=== PATIENT | male | born 1970 | race African-American/Black ===

== ENCOUNTER 2024-04-12 21:40 | Inpatient (IN) | payer OTHER ==
[~2024-04-12] VITALS: Ht 180.3 cm; Wt 99.8 kg
[2024-04-12] MEDS ORDERED: AMIODARONE HCL 150 MG/3 ML VIAL IV ONE ×2 (21:53→22:18)
[2024-04-12] MEDS ORDERED: blood thinner (22:09)
[2024-04-12] MEDS ORDERED: metoprolol PO (22:09)
[2024-04-12] MEDS ORDERED: ASPIRIN 81 MG TAB.CHEW ONE (22:18)
[2024-04-12] MEDS ORDERED: NITROGLYCERIN OINT 1 GM PACKET TP ONE (22:18)
[2024-04-12 22:20] LABS: BASOPHILS # (AUTO) 0.1 K/UL (0.0-0.2); BASOPHILS % (AUTO) 0.5 % (0.0-2.0); EOSINOPHILS # (AUTO) 0.1 K/uL (0.0-0.7); EOSINOPHILS % (AUTO) 0.7 % (0.0-7.0); HEMATOCRIT 44.9 % (36.7-47.1); HEMOGLOBIN 14.6 g/dL (12.5-16.3); LYMPHOCYTES # (AUTO) 2.9 K/uL (0.8-4.8); LYMPHOCYTES % (AUTO) 25.6 % (20.5-51.5); MEAN CORPUSCULAR HEMOGLOBIN 27.2 uug (23.8-33.4); MEAN CORPUSCULAR HGB CONC 33 g/dL (32.5-36.3); MEAN CORPUSCULAR VOLUME 83.6 fL (73.0-96.2); MONOCYTES # (AUTO) 0.7 K/uL (0.1-1.30); MONOCYTES % (AUTO) 6.1 % (0.0-11.0); NEUTROPHILS # (AUTO) 7.7 K/uL (1.8-8.9); NEUTROPHILS % (AUTO) 67.1 % (38.5-71.5); PLATELET COUNT (AUTO) 204 K/uL (152-348); RED BLOOD CELL COUNT(AUTO) 5.36 MIL/uL (4.06-5.63); RED CELL DISTRIBUTION WIDTH 15.8 % (12.1-16.2); WHITE BLOOD COUNT (AUTO) 11.4 K/uL (3.6-10.2)
[2024-04-12] MEDS: NITROGLYCERIN OINT 1 GM PACKET TP ONE (22:21)
[2024-04-12] MEDS: ASPIRIN 81 MG TAB.CHEW PO ONE (22:21)
[2024-04-12 22:23] LABS: DIFFERENTIAL COMMENT 1
[2024-04-12 22:26] LABS: CALCIUM 9.1 mg/dL (8.5-10.1); CARBON DIOXIDE 30 mmol/L (21-32); CHLORIDE 105 mmol/L (98-107); CREATININE 1.8 mg/dL (0.6-1.3); GLUCOSE 121 mg/dL (74-106); POTASSIUM 3.2 mmol/L (3.5-5.1); SODIUM SERUM 143 mmol/L (136-145); UREA NITROGEN, BLOOD 20 mg/dL (7-18)
[2024-04-12 22:40] LABS: ALANINE AMINOTRANSFERASE 163 U/L (16-63); ALBUMIN 3.7 g/dL (3.4-5.0); ALKALINE PHOSPHATASE 73 U/L (50-136); ASPARTATE AMINOTRANSFERASE 130 U/L (15-37); BILIRUBIN,DIRECT 0.1 mg/dL (0.0-0.2); BILIRUBIN,TOTAL 0.3 mg/dL (0.2-1.0); NT-PRO BNP 184 pg/mL (0-125); TOTAL PROTEIN, SERUM 8.4 g/dL (6.4-8.2)
[2024-04-12] MEDS: AMIODARONE HCL IV 450 MG in IV DEXTROSE 5% 250 ML IV PRN ×2 (22:44)
[2024-04-12] MEDS ORDERED: METOPROLOL TARTRATE 5 MG/5 ML VIAL IVP ONE ×2 (22:54→23:40)
[2024-04-12] MEDS ORDERED: POTASSIUM CHLORIDE 20 MEQ TAB.PRT.SR ONE (22:54)
[2024-04-12 23:00] VITALS: O2SAT 96
[2024-04-12] MEDS: AMIODARONE HCL IV 150 MG in IV DEXTROSE 5% 100 ML IV ONE (23:01)
[2024-04-12] MEDS: METOPROLOL TARTRATE 5 MG/5 ML VIAL IVP ONE ×2 (23:01→23:47)
[2024-04-12] MEDS: POTASSIUM CHLORIDE 20 MEQ TAB.PRT.SR PO ONE (23:01)
[2024-04-13] MEDS ORDERED: MAGNESIUM HYDROXIDE 30 ML LIQUID UDC PO PRN (00:15)
[2024-04-13] MEDS ORDERED: ONDANSETRON 4 MG/2 ML VIAL IV PRN (00:15)
[2024-04-13] MEDS: ACETAMINOPHEN 325 MG TABLET PO PRN (02:51)
[2024-04-13 06:51] LABS: BASOPHILS % (AUTO) 0.4 % (0.0-2.0); EOSINOPHILS # (AUTO) 0.1 K/uL (0.0-0.7); EOSINOPHILS % (AUTO) 0.6 % (0.0-7.0); HEMATOCRIT 40.4 % (36.7-47.1); HEMOGLOBIN 13.4 g/dL (12.5-16.3); LYMPHOCYTES # (AUTO) 2.7 K/uL (0.8-4.8); LYMPHOCYTES % (AUTO) 25.4 % (20.5-51.5); MEAN CORPUSCULAR HEMOGLOBIN 27.9 uug (23.8-33.4); MEAN CORPUSCULAR HGB CONC 33 g/dL (32.5-36.3); MEAN CORPUSCULAR VOLUME 84.1 fL (73.0-96.2); MONOCYTES # (AUTO) 0.7 K/uL (0.1-1.30); MONOCYTES % (AUTO) 6.7 % (0.0-11.0); NEUTROPHILS # (AUTO) 7.2 K/uL (1.8-8.9); NEUTROPHILS % (AUTO) 66.9 % (38.5-71.5); PLATELET COUNT (AUTO) 198 K/uL (152-348); RED CELL DISTRIBUTION WIDTH 15.2 % (12.1-16.2); WHITE BLOOD COUNT (AUTO) 10.8 K/uL (3.6-10.2)
[2024-04-13 06:53] LABS: DIFFERENTIAL COMMENT 1
[2024-04-13 07:03] LABS: CALCIUM 8.9 mg/dL (8.5-10.1); CREATININE 1.9 mg/dL (0.6-1.3); MAGNESIUM 2.4 mg/dL (1.8-2.4); PHOSPHOROUS 3.5 mg/dL (2.5-4.9); POTASSIUM 3.7 mmol/L (3.5-5.1)
[2024-04-13 07:14] LABS: THYROID STIMULATING HORMONE 3.4 mIU/mL (0.358-3.740)
[2024-04-13 08:47] VITALS: BP 172/109; TEMP 97.8; O2SAT 98
[2024-04-13] MEDS: LOSARTAN POTASSIUM 50 MG TABLET PO SCH (10:12)
[2024-04-13] MEDS: PANTOPRAZOLE SODIUM 40 MG VIAL IV SCH (10:13)
[2024-04-13] MEDS: METOPROLOL SUCCINATE XL 50 MG TAB.SR.24H PO SCH (10:13)
[2024-04-13] MEDS: ASPIRIN EC 81 MG TABLET.DR PO SCH (10:13)
[2024-04-13] MEDS ORDERED: HEPARIN/D5W DRIP 500 ML IV PRN (11:00)
[2024-04-13] MEDS: METOPROLOL SUCCINATE XL 50 MG TAB.SR.24H PO ONE (11:13)
[2024-04-13 11:59] VITALS: BP 132/75; TEMP 97.8; O2SAT 98
[2024-04-14] MEDS ORDERED: METOPROLOL SUCCINATE XL 50 MG TAB.SR.24H PO SCH (09:00)
== END 2024-04-13 12:55 | disposition left against medical advice (07) | DRG 201 ==
LOC: ER 21:40 → TELE-TD3 04-13 02:01
PROVIDERS: ATTEND Internal Medicine
DX: I48.0 Paroxysmal atrial fibrillation (principal); N17.0 Acute kidney failure with tubular necrosis; I21.A1 Myocardial infarction type 2; I50.31 Acute diastolic (congestive) heart failure; I11.0 Hypertensive heart disease with heart failure; I25.10 Atherosclerotic heart disease of native coronary artery without angina pectoris; E78.5 Hyperlipidemia, unspecified; E66.9 Obesity, unspecified; Z68.30 Body mass index [BMI] 30.0-30.9, adult; R73.03 Prediabetes; R74.01 Elevation of levels of liver transaminase levels; E87.6 Hypokalemia; Z53.29 Procedure and treatment not carried out because of patient's decision for other reasons
CPT/HCPCS: 36415; 71045; 83735; 84100; 84443; 84484; 85025; 93005; 93307; A4663; G0378; J0282; J2470; J3490

== ENCOUNTER 2024-10-07 14:50 | Emergency (ER) | payer MEDICAID, OTHER ==
[~2024-10-07] VITALS: Ht 188 cm; Wt 108.9 kg
[2024-10-07] MEDS ORDERED: CEFAZOLIN 1 G VIAL ONE (15:04)
[2024-10-07] MEDS ORDERED: TDAP DIPH,PERTUSS,TET VAC/PF 0.5 ML DISP.SYRIN IM ONE (15:04)
[2024-10-07] MEDS ORDERED: LIDOCAINE HCL 1% 20 ML VIAL ONE (15:11)
[2024-10-07] MEDS: CEFAZOLIN 1 G in IV DEXTROSE 5% 50 ML IV ONE (15:16)
[2024-10-07] MEDS: TDAP DIPH,PERTUSS,TET VAC/PF 0.5 ML DISP.SYRIN IM ONE (15:21)
[2024-10-07] MEDS: LIDOCAINE HCL 1% 20 ML VIAL TP ONE (15:25)
[2024-10-07] MEDS ORDERED: LET TOPICAL SOLUTION 8 ML UDC ONE (15:39)
[2024-10-07] MEDS: LET TOPICAL SOLUTION 8 ML UDC TP ONE (15:46)
[2024-10-07 16:54] VITALS: BP 210/132
[2024-10-07] MEDS ORDERED: HYDR-3972 PO (17:44)
[2024-10-07] MEDS ORDERED: LOSA-22 PO (17:45)
[2024-10-07] MEDS ORDERED: CEPH500C2 PO (17:45)
[2024-10-07] MEDS ORDERED: AMLO10TA4 PO (17:45)
[2024-10-07] MEDS ORDERED: ACETAMINOPHEN 500 MG TABLET ONE (17:50)
[2024-10-07] MEDS ORDERED: IBUPROFEN 800 MG TABLET ONE (17:50)
[2024-10-07] MEDS: IBUPROFEN 800 MG TABLET PO ONE (17:53)
[2024-10-07] MEDS: ACETAMINOPHEN 500 MG TABLET PO ONE (17:53)
[2024-10-07] MEDS ORDERED: NEOMY/BACITRA/POLYMYXIN B OINT UD PACKET TP ONE ×2 (18:04→18:15)
[2024-10-07 18:06] VITALS: BP 196/104; O2SAT 97
== END 2024-10-07 18:08 | disposition home or self-care (01) ==
LOC: ER 14:51
DX: S65.212A Laceration of superficial palmar arch of left hand, initial encounter (principal); I10 Essential (primary) hypertension; I25.2 Old myocardial infarction; Z79.899 Other long term (current) drug therapy; Z86.79 Personal history of other diseases of the circulatory system; W45.8XXA Other foreign body or object entering through skin, initial encounter; Y93.89 Activity, other specified; Y92.89 Other specified places as the place of occurrence of the external cause; Y99.8 Other external cause status
CPT/HCPCS: 99284; 96365; 12001; 90715; 90471; J0690; J3490; A4606; A4663; A9150